=== PATIENT | female | born 1990 | race Caucasian/White ===

== ENCOUNTER 2024-03-07 08:32 | Outpatient (CLI) | payer OTHER, SELFPAY ==
[2024-03-09 08:24] LABS: HPV Source Cervical; HPV, High Risk by TMA Not Detected
[2024-03-19 14:36] LABS: PAP Reflex Billing Y; Pap Test Reviewed by Path Done
== END 2024-03-07 08:33 | disposition home or self-care (01) ==
PROVIDERS: PCP Registered Nurse; Visit Provider Registered Nurse
DX: Z00.00 Encounter for general adult medical examination without abnormal findings (principal); N92.0 Excessive and frequent menstruation with regular cycle; D68.51 Activated protein C resistance; L03.90 Cellulitis, unspecified; Z13.0 Encounter for screening for diseases of the blood and blood-forming organs and certain disorders involving the immune mechanism
CPT/HCPCS: 80048; 82728; 84443; 87624; 87625; 88141; 88142

== ENCOUNTER 2024-03-20 10:32 | Outpatient (CLI) | payer OTHER, SELFPAY ==
--- NOTE | 2024-03-20 10:45 | CRLHL7_ITS ---
For Patients: As a result of the Century Cures Act, medical imaging exams and procedure reports are released immediately into your electronic medical record. You may view this report before your referring provider. If you have questions, please contact your health care provider. INDICATION: excessive bleeding/ anemic COMPARISON: none TECHNIQUE: 2D whipple scale and color Doppler images were acquired of the pelvis using a transabdominal and transvaginal approach. FINDINGS: Sonographic images demonstrate a normal size and smooth outer contour of the uterus. Uterus measures 10.7 cm in length by 5.0 cm in AP diameter by 7.3 cm in transverse dimension. The myometrium has a normal uniform echotexture. The endometrial lining measures 14 mm in composite thickness. The right ovary measures 3.6 x 2.2 x 2.5 cm in size and the left ovary measures 3.5 x 2.1 x 2.5 cm. The ovaries demonstrate normal arterial and venous blood flow on color Doppler analysis. There are no suspicious fluid collections within the cul-de-sac. IMPRESSION: Endometrial thickness 14 millimeters. No endometrial fluid. No uterine fibroid. Dictated by Michael Beltre MD @ 03/20/2024 12:22:29 PM (Electronically Signed)
== END 2024-03-20 10:33 | disposition home or self-care (01) ==
LOC: US 10:33
PROVIDERS: PCP Registered Nurse; Visit Provider Registered Nurse
DX: N92.0 Excessive and frequent menstruation with regular cycle (principal); R93.89 Abnormal findings on diagnostic imaging of other specified body structures
CPT/HCPCS: 76830; 76856